=== PATIENT | female | born 1980 | race Two or more races ===

== ENCOUNTER 2017-03-12 21:55 | Emergency (ER) | payer OTHER ==
--- NOTE | ~2017-03-12 | CT71 ---
[facility] A Service of [facility] & [facility] RADIOLOGY TEXT RESULTS PATIENT: LIZETTE TYLER LOCATION: [facility] : [birth year] UNIT #: [id number] AGE: [address]: Heriberto Bermudez MD SEX: F ORDER DR: [id number] [facility] [address] [place], [place] [address] [id number] E MR#: [id number] Acc #: [id number] NAME: LIZETTE TYLER : 1980 SEX: F STUDY DATE/TIME: 03/12/2017 23:52 UNIT: [facility] ROOM: STUDY DESCRIPTION: CT Head Wo Contrast Attending Physician: Heriberto Bermudez M.D. Referring Physician: Fiorella Melendrez Ordering Physician: Heriberto Bermudez M.D. Primary Care Physician: Fiorella Melendrez MEDICAL IMAGING REPORT This report is preliminary unless electronic signature is present EXAM CT scan head without contrast INDICATIONS Numbness left hand, head and face. Left-sided weakness starting today. TECHNIQUE This CT exam was performed with one or more of the following radiation dose reduction techniques: automatic exposure control, adjustment of mA and/or kV according to patient size, and iterative reconstruction. FINDINGS Axial noncontrast images were obtained from the skull base to the vertex. Ventricular size and configuration are normal. There is no evidence of acute infarct or hemorrhage. There are no extra-axial fluid collections. No mass lesion or mass effect is seen. There are no skull fractures. IMPRESSION Normal noncontrast head CT. Dictated by... Olvin Hardwick M.D. THIS IS AN ELECTRONICALLY VERIFIED REPORT Olvin Hardwick M.D. at 03/13/2017 5:53 AM YUKI/lanie TD: 03/13/2017 01:44 JOB #: [id number] MEDICAL IMAGING REPORT Page 1 of 1 COPY
--- NOTE | ~2017-03-12 | CR72 ---
[facility] A Service of [facility] & [facility] RADIOLOGY TEXT RESULTS PATIENT: LIZETTE TYLER LOCATION: [facility] : 82 UNIT #: [id number] AGE: [address]: Heriberto Bermudez MD SEX: F ORDER DR: [id number] [facility] [address] [place], [place] [address] [id number] E MR#: [id number] Acc #: [id number] NAME: LIZETTE TYLER : 1980 SEX: F STUDY DATE/TIME: 03/12/2017 23:43 UNIT: [facility] ROOM: STUDY DESCRIPTION: CR Chest Single View Portable Attending Physician: Heriberto Bermudez M.D. Referring Physician: Anna Melendrez M.D. Ordering Physician: Heriberto Bermudez M.D. Primary Care Physician: Anna Melendrez M.D. MEDICAL IMAGING REPORT This report is preliminary unless electronic signature is present EXAM Portable chest INDICATION Heart palpitations and chest pain starting today. No comparison. FINDINGS A portable view of the chest was obtained. The heart size and vascularity are normal, lungs are clear and the bones are unremarkable. IMPRESSION No active disease. Dictated by... Olvin Hardwick M.D. THIS IS AN ELECTRONICALLY VERIFIED REPORT Olvin Hardwick M.D. at 03/13/2017 9:52 PM YUKI/lanie TD: 03/13/2017 00:27 JOB #: [id number] MEDICAL IMAGING REPORT Page 1 of 1 COPY
--- NOTE | ~2017-03-12 | EKG ---
PATIENT: LIZETTE TYLER UNIT #: [id number] Ventricular Rate: 69 BPM Atrial Rate: 69 BPM P-R Interval: 136 ms QRS Duration: 86 ms Q-T Interval: 398 ms QTC Calculation(Bezet): 426 ms P [place]: 39 degrees Calculated R [place]: 48 degrees Calculated T [place]: 43 degrees Diagnosis Line: Normal sinus rhythm Diagnosis Line: Normal ECG Diagnosis Line: When compared with ECG of 12-MAR-2017 23:38, Diagnosis Line: (unconfirmed) Diagnosis Line: No significant change was found Diagnosis Line: Confirmed by ADAM HARVEY MD ([id number]) on Diagnosis Line: 03/13/2017 10:41:57 AM INTERPRETING MD: WES MAYS
[2017-03-12 23:45] LABS: BASOPHIL# 0.1 X10e3 (0-0.3); BASOPHIL% 0.5 % (0-2.5); EOSINOPHIL% 0.3 % (0.0-7.0); HEMOGLOBIN 11.8 gm/dL (12.0-16.0); LYMPHOCYTE# 1.7 X10e3 (1.0-3.5); LYMPHOCYTE% 15.7 % (17.0-45.0); MEAN CELL VOLUME 81.1 FL (83-96); MEAN CORPUSCULAR HEMOGLOBIN 26.5 PG (28-34); MEAN CORPUSCULAR HGB CONC 32.7 g/dL (30-36); MEAN PLATELET VOLUME 7.9 FL (6.5-11.5); MONOCYTE# 0.5 X10e3 (0-1.0); MONOCYTE% 4.9 % (3.0-12.0); NEUTROPHIL# 8.4 X10e3 (1.5-7.1); NEUTROPHIL% 78.6 % (40-75); PLATELET COUNT 305 X10e3 (140-420); RED BLOOD COUNT 4.44 X10e (3.90-5.30); RED CELL DISTRIBUTION WIDTH 14.3 % (11.0-15.5); WHITE BLOOD COUNT 10.7 X10e3 (4.0-10.5)
[2017-03-12 23:46] LABS: DIFF IND NO
[2017-03-12 23:50] LABS: POC - CKMB 2.6 ng/mL (0.0-7.9); POC - TROPONIN <0.05 ng/mL (<=0.05)
[2017-03-13 00:06] LABS: CALCIUM SERUM 8.9 mg/dL (8.4-10.2); CREATININE SERUM 0.5 mg/dL (0.6-1.4); GLOM FILT RATE Estimated 125.4 mL/min (>60); POTASSIUM 3.2 mmol/L (3.5-5.1)
[2017-03-13 00:28] LABS: URINE SOURCE CLEAN CATCH
[2017-03-13 00:37] LABS: URINE APPEARANCE CLEAR; URINE BILIRUBIN NEG (NEG); URINE BLOOD TRACE (NEG); URINE COLOR YELLOW; URINE GLUCOSE NEG (NEG); URINE KETONE TRACE (NEG); URINE LEUKOCYTE ESTERASE TRACE (NEG); URINE NITRATE POS (NEG); URINE PROTEIN TRACE (NEG); URINE UROBILINOGEN 0.2 MG/DL (NEG)
[2017-03-13 00:40] LABS: CULTURE INDICATED? YES; URINE BACTERIA AUWI 4+ (NEGATIVE); URINE SQUAMOUS EPITHELIAL CELL OCC /[HPF]
[2017-03-13 01:27] LABS: POC - CKMB 2.8 ng/mL (0.0-7.9); POC - TROPONIN <0.05 ng/mL (<=0.05)
== END 2017-03-13 01:37 | disposition home or self-care (01) ==
LOC: CED 21:55
PROVIDERS: Emergency Medicine
DX: R20.2 Paresthesia of skin (principal); R00.2 Palpitations; I10 Essential (primary) hypertension; Z90.49 Acquired absence of other specified parts of digestive tract
CPT/HCPCS: 36415; 70450; 71010; 80048; 81003; 82553; 83735; 84443; 84484; 85025; 87086; 87088; 87186; 93005; 99285

== ENCOUNTER 2017-03-22 23:52 | Emergency (ER) | payer OTHER | END 2017-03-23 01:30 | disposition home or self-care (01) | LOC: CED 23:52 | DX: Z53.21 Procedure and treatment not carried out due to patient leaving prior to being seen by health care provider (principal) ==